=== PATIENT | male | born 1960 | race African-American/Black ===

== ENCOUNTER → 2016-06-14 | Outpatient (CLI) | payer BC ==
[~2016-06-14] MED LIST: AMPI500C9 PO; ANDG TOP; ASPCH81X PO; ATOR-24 PO; B-COTAB18 PO; CALC600T37 PO; CHOL1TAB42 PO; CYAN1TAB18 PO; DYZ PO; HYDR-5688 PO; MELOXICAM PO; METF500T5 PO; MULT-221 PO; NIAC500T11 PO; OXYC1TAB3 PO; PROB1TAB16 PO; TRIA37.5 PO; VLT/75 PO
[2016-06-14 11:05] LABS: HEMATOCRIT 40.1 % (42-52); MEAN CELL VOLUME 64.5 fL (80-100); MEAN CORPUSCULAR HEMOGLOBIN 21.5 pg (25-34); MEAN CORPUSCULAR HGB CONC 33.4 g/dl (32-36); MEAN PLATELET VOLUME 10.2 fL (7.4-10.4); PLATELET COUNT 258 K/uL (130-400); RED BLOOD COUNT 6.22 M/uL (4.7-6.1); WHITE BLOOD COUNT 5.63 K/uL (4.8-10.8)
--- NOTE | 2016-06-14 12:25 | DIAGNOSTIC IMAGING REPORT ---
MRI right knee RIGHT LOWER EXT JOINT WITHOUT CLINICAL HISTORY: RIGHT KNEE PAIN M25.561 Right pain TECHNIQUE: MRI multi axial acquisition COMPARISON STUDY: None FINDINGS: Signal characteristics the osseous structures are in general unremarkable. There is no significant bone marrow replacing process. There is a small joint effusion with a trace amount of debris within the suprapatellar bursa area. The patellar articulating surface appears to be intact. Patellar retinaculum are intact. Anterior and posterior cruciate ligaments are unremarkable. The collateral ligaments are intact. Evaluation of menisci shows lateral meniscus to be unremarkable in overall configuration and signal character. Medial meniscus demonstrates a horizontal intrameniscal cleavage tear at its mid to posterior horn sites. Appears to be hairline extension to the apex of the mid medial meniscus. No significant loss of meniscal substance. IMPRESSION: 1. Tear posterior horn medial meniscus with hairline extension to the mid medial meniscal apex. 2. Small joint effusion with a trace amount of debris within the suprapatellar bursa. 3. Study is otherwise negative Electronically signed by: John Valdez M.D. 06/14/2016 12:23 PM
[2016-06-17 15:37] LABS: AFP TUMOR MARKER SERUM 2.6 NG/ML (<6.1)
== END | disposition home or self-care (01) ==
LOC: C.MRI 10:19
PROVIDERS: ATTEND Orthopaedic Surgery
DX: M25.561 Pain in right knee (principal); C62.90 Malignant neoplasm of unspecified testis, unspecified whether descended or undescended

== ENCOUNTER → 2016-06-20 | Outpatient (CLI) | payer BC ==
[2016-06-20 09:29] LABS: BASO % 0.2 %; BASO ABS # 0.01 K/uL (0-0.2); EOS % 2.4 %; HEMATOCRIT 39.9 % (42-52); IG% 0.2 %; LYMPH % 40.7 %; LYMPH ABS # 1.86 K/uL (1.2-3.4); MEAN CELL VOLUME 64.5 fL (80-100); MEAN CORPUSCULAR HGB CONC 32.6 g/dl (32-36); MONO % 14.7 %; NEUT % 41.8 %; PLATELET COUNT 274 K/uL (130-400); RED BLOOD COUNT 6.19 M/uL (4.7-6.1); WHITE BLOOD COUNT 4.57 K/uL (4.8-10.8)
[2016-06-20 09:52] LABS: COMPLETE YES; MICROCYTOSIS PRESENT
[2016-06-20 10:01] LABS: POTASSIUM 3.7 mmol/L (3.5-5.1)
== END | disposition home or self-care (01) ==
LOC: C.LAB 08:19
PROVIDERS: ATTEND Orthopaedic Surgery
DX: Z01.812 Encounter for preprocedural laboratory examination (principal); S83.241A Other tear of medial meniscus, current injury, right knee, initial encounter; X58.XXXA Exposure to other specified factors, initial encounter

== ENCOUNTER → 2016-06-28 | Day surgery (SDC) | payer BC ==
[2016-06-22 10:55] VITALS: Ht 175.3 cm; Wt 125.0 kg
[~2016-06-28] VITALS: Ht 175.3 cm; Wt 125.0 kg
[~2016-06-28] MED LIST changes: -AMPI500C9 PO; +BUPIVACAINE 0.5 % 5 MG/1 ML PF 10ML VIAL ONE; +CEFAZOLIN 3000 MG/65 ML D5W IV SCH; -CYAN1TAB18 PO; +DEXAMETHASONE SOD INJ 4 MG/ML VIAL ONE; +EpINEphrine INJ 1MG/ML AMP 1 MG/ML AMP ONE; +FENTANYL CITRATE INJ 50 MCG/1 ML 2 ML VIAL IV PRN; +FENTANYL CITRATE INJ 50 MCG/1 ML 2 ML VIAL ONE; +KETOROLAC TROMETHAMINE 30 MG/ML VIAL ONE; +LACTATED RINGER'S 1000ML 1,000 ML IV PRN; +LACTATED RINGER'S 1000ML 1,000 ML IV SCH; +LIDOCAINE HCL 2% 2 ML VIAL (20MG/ML) ONE; +MIDAZOLAM HCL 1 MG/ML 2ML VIAL ONE; +ONDANSETRON INJ 2 MG/ML 2 ML VIAL IV PRN; +ONDANSETRON INJ 2 MG/ML 2 ML VIAL ONE; +OXYCODONE/ACETAMINOPHEN 5-325 TAB PO PRN; +PROPOFOL IV EMULSION 10 MG/ML 20 ML VIAL IV ONE; +ROPIVACAINE 0.5% 5 MG/ML 30 ML VIAL ONE; +SODIUM CHLORIDE 0.9% 1000ML 1,000 ML IV SCH
--- NOTE | 2016-06-28 06:44 | History & Physical Bridge - SC ---
H&P Re-Evaluation Bridge Note: I have examined the patient, reviewed the History & Physical and in the interval since the performance of the History & Physical I have noted the following changes of clinical significance: No changes noted
--- NOTE | 2016-06-28 07:54 | [facility] Post Operative Brief Note ---
Immediate Operative Summary Operative Date Jun 28, 2016. Pre-Operative Diagnosis Right knee medial meniscus tear Post-Operative Diagnosis same Procedure(s) Performed Right Knee Arthroscopy, Partial Medial Meniscectomy Surgeon Dr Harris Image Processing Engineer Surgeon(s) Martin Joseph PA-C Estimated Blood Loss 0 Findings ABOVE Specimens 0 Anesthesia LMA Complication(s) None Disposition Recovery Room / PACU
--- NOTE | 2016-06-28 08:07 | Discharge Instructions-SurgCtr ---
Discharge Instructions Visit Reason for Visit: Right Knee Medial Meniscus Tear Discharge Discharge Diagnosis / Problem: SAME ABOVE Discharge Goals Goal(s): Decrease discomfort Activity Recommendations Activity Limitations: as noted below Lifting Limitations: gradually increase as tolerated Exercise/Sports Limitations: until after follow-up appointment Weightbearing Status: Right weightbearing (as tolerated) Anesthesia . Post Anesthesia Instructions: If you have had General Anesthesia or IV Sedation: * Do not drive today. * Resume driving when surgeon permits. * Do not make important decisions or sign legal documents today. * Call surgeon for: 1. Temperature elevations greater than 101 degrees F. 2. Uncontrollable pain. 3. Excessive bleeding. 4. Persistent nausea and vomiting. 5. Medication intolerance (nausea, vomiting or rash). * For nausea and vomiting use only clear liquids such as: tea, soda, bouillon until nausea subsides, then gradually increase diet as tolerated. * If you have any concerns or questions, call your surgeon's office. If physician is unavailable and it is an emergency, call 911 or go to the nearest emergency room. . Instructions / Follow-Up Instructions / Follow-Up MEDICATIONS: * Resume previous medications unless instructed otherwise by your surgeon. * Always take pain medication on a full stomach or with food to avoid upset stomach. * Do not drink alcohol or drive while taking narcotics. * Ibuprofen or Tylenol may be taken if narcotic not needed. SPECIAL CARE INSTRUCTIONS: __ None _X_ Keep extremity elevated and iced x 48 hours; apply ice 20-30 minutes 8-10 times/day. May remove at night. __ Crutches __ May discard when able __ Brace/Post-op shoe __ 24 hrs/day __ Remove at night _X_ Dressing __ Maintain until seen in office, may shower with plastic over site _X_ Remove dressings in 24-48 hours and then may shower _X_ Cover incisions with band-aids after showering __ Do not remove steri-strips Call physician if chills or temperature rises above 102 degrees or pain unrelieved by prescribed pain medications. Office [phone] Diet Recommendations Home Diet: resume previous diet Procedures Procedures Performed: Right Knee Arthroscopy, Partial Medial Meniscectomy Pending Studies Studies pending at discharge: no Medical Emergencies . Who to Call and When: Medical Emergencies: If at any time you feel your situation is an emergency, please call 911 immediately. . Non-Emergent Contact Non-Emergency issues call your: Primary Care Provider . . "Provider Documentation" section prepared by Gerry Joseph.
--- NOTE | 2016-06-28 08:44 | Anesthesia Progress Nt - [facility] ---
Anesthesia Post Op Note Date & Time Jun 28, 2016 at 08:43 Vital Signs Pain Intensity: 4 Vital Signs Past 12 Hours Date Time Temp Pulse Resp B/P Pulse Ox O2 Delivery O2 Flow Rate FiO2 06/28/16 08:06 36.7 104 16 159/104 96 Mask 6 06/28/16 06:45 37.0 89 20 125/89 96 Room Air Notes Mental Status: alert / awake / arousable, participated in evaluation Pt Amnestic to Procedure: Yes Nausea / Vomiting: adequately controlled Pain: adequately controlled Airway Patency, RR, SpO2: stable & adequate BP & HR: stable & adequate Hydration State: stable & adequate Anesthetic Complications: no major complications apparent Pt doing well. BP 125/66.
[2016-06-28 08:45] VITALS: TEMP 36.4
--- NOTE | 2016-06-28 09:08 | OPERATIVE REPORT ---
DATE OF OPERATION: 06/28/2016 PREOPERATIVE DIAGNOSIS: Displaced posterior horn medial meniscus tear, right knee. POSTOPERATIVE DIAGNOSIS: Large displaced flap tear of the posterior horn of the medial meniscus. PROCEDURE: Right knee arthroscopy, partial medial meniscectomy. SURGEON: Dr. Harris. MACHINE STUFFER AUTOMATIC: Gerry Joseph PA-C. ANESTHESIOLOGIST: Dr. Mckeon. ANESTHESIA: LMA. DRAINS: None. COMPLICATIONS: None. CONDITION: The patient tolerated the procedure well and returned to the recovery room in apparent satisfactory condition. INDICATIONS FOR SURGERY: Eugenio is a 56-year-old male who has had increasing pain and discomfort after tripping over a manhole cover and injured his knee. He has gotten progressively worse. MRI, physical exam and history are consistent with a medial meniscus tear and elected to go ahead and proceed with surgery. Procedure, expected outcomes and side effects were all explained in detail. DESCRIPTION OF PROCEDURE: The patient was taken to the OR at which time he was placed supine on the operating table and put to sleep by anesthesia department. Examination of the knee was performed. Ligamentous still it was stable. Went ahead and prepped and draped in the usual sterile fashion. Began arthroscopic examination in the anteromedial and anterolateral portals. In the medial compartment, we found a large flap tear of the posterior horn of the meniscus. It was flipped up in the intercondylar notch, it was reduced back and trimmed out without incident. It was trimmed back to a stable rim with upbiting scissors and a full radius resector. Articular surface was in good shape. ACL, lateral compartment good shape. He had some synovitis in the patellofemoral joint which was shaved out. The articular surfaces also. The knee then was copiously irrigated. We removed all cannulas, closed the portals with 4-0 nylon sutures. 30 mL of ropivacaine, 10 mg of Toradol, 1 mL epinephrine was placed in the knee joint. Placed a sterile dressing of Xeroform, 4 x 4, ABD, Sof-Rol, and Edward bandage and returned to the recovery room in apparent satisfactory condition. SURGICAL FINDINGS: Posterior horn large flap tear displaced to the medial meniscus. I attest to the content of the Intraoperative Record and any orders documented therein. Any exceptio ns are noted below.
[2016-06-28 09:29] VITALS: BP 118/78; PULSE 61; O2SAT 98
== END | disposition home or self-care (01) ==
LOC: X.SURG 06:34
PROVIDERS: ATTEND Orthopaedic Surgery
DX: S83.241A Other tear of medial meniscus, current injury, right knee, initial encounter (principal); W18.41XA Slipping, tripping and stumbling without falling due to stepping on object, initial encounter; Y93.01 Activity, walking, marching and hiking; Y92.89 Other specified places as the place of occurrence of the external cause; I10 Essential (primary) hypertension; Z85.47 Personal history of malignant neoplasm of testis; E11.9 Type 2 diabetes mellitus without complications; G47.33 Obstructive sleep apnea (adult) (pediatric)

== ENCOUNTER 2016-12-05 06:11 | Emergency (ER) | payer BC ==
[~2016-12-05] VITALS: Ht 175.3 cm; Wt 125.2 kg
[~2016-12-05 06:11] MED LIST changes: -ATOR-24 PO; -BUPIVACAINE 0.5 % 5 MG/1 ML PF 10ML VIAL ONE; -CEFAZOLIN 3000 MG/65 ML D5W IV SCH; -DEXAMETHASONE SOD INJ 4 MG/ML VIAL ONE; -EpINEphrine INJ 1MG/ML AMP 1 MG/ML AMP ONE; -FENTANYL CITRATE INJ 50 MCG/1 ML 2 ML VIAL IV PRN; -FENTANYL CITRATE INJ 50 MCG/1 ML 2 ML VIAL ONE; -KETOROLAC TROMETHAMINE 30 MG/ML VIAL ONE; -LACTATED RINGER'S 1000ML 1,000 ML IV PRN; -LACTATED RINGER'S 1000ML 1,000 ML IV SCH; -LIDOCAINE HCL 2% 2 ML VIAL (20MG/ML) ONE; -MIDAZOLAM HCL 1 MG/ML 2ML VIAL ONE; -NIAC500T11 PO; -ONDANSETRON INJ 2 MG/ML 2 ML VIAL IV PRN; -ONDANSETRON INJ 2 MG/ML 2 ML VIAL ONE; -OXYC1TAB3 PO; -OXYCODONE/ACETAMINOPHEN 5-325 TAB PO PRN; -PROPOFOL IV EMULSION 10 MG/ML 20 ML VIAL IV ONE; -ROPIVACAINE 0.5% 5 MG/ML 30 ML VIAL ONE; -SODIUM CHLORIDE 0.9% 1000ML 1,000 ML IV SCH; -TRIA37.5 PO; -VLT/75 PO
[2016-12-05 06:16] VITALS: TEMP 36.7; Ht 175.3 cm; Wt 125.2 kg
[2016-12-05] MEDS ORDERED: SODIUM CHLORIDE 0.9% 1000ML 1,000 ML IV STA (06:31)
[2016-12-05] MEDS ORDERED: ONDANSETRON INJ 2 MG/ML 2 ML VIAL IV STA (06:31)
[2016-12-05] MEDS ORDERED: MoRPHine SULFATE 4 MG/ML 1 ML CARP\\VIAL IV PRN (06:45)
[2016-12-05] MEDS ORDERED: ATOR-24 PO (06:47)
[2016-12-05] MEDS ORDERED: VLT/75 PO (06:47)
[2016-12-05] MEDS ORDERED: TRIA37.5 PO (06:48)
[2016-12-05] MEDS ORDERED: NIAC500T11 PO (06:48)
--- NOTE | 2016-12-05 06:58 | EMERGENCY ROOM VISIT NOTE ---
History Report prepared by Sharif: Belinda Aggarwal Under the Supervision of: Dr. Sherwin Moses D.O. First contact with patient: 06:23 Chief Complaint: BACK PAIN Stated Complaint: LWR BACK PAIN,PAIN MOVING STARTED IN CENTER History of Present Illness The patient is a 56 year old male who presents to the Emergency Room with complaints of worsening constant lower back pain beginning 17 days prior to arrival. The patient states that the pain began in the center and moves location laterally. He states the pain radiates into his groin. He also notes difficulty moving this morning and used a heating pad which helped to alleviate his pain. The patient saw his PCP when the pain first began and he is scheduled for a CT scan today. He states that his PCP wanted to look at his organs and then would treat the back pain. The patient states that he has had similar pain to this before and was evaluated for a kidney stone but no stone was found. The patient has a history of testicular cancer and did have his right testicle removed. The patient is also a diabetic. He notes a recent colonoscopy showed polyps. He denies nausea, vomiting, fever, chills, urinary symptoms, dark urine or blood in urine, abdominal pain, testicular pain, or a rash. 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 A total of 10 systems reviewed and were otherwise negative. Past Medical & Surgical Medical Problems: (1) Diabetes (2) Testicular cancer Surgical Problems: (1) H/O vasectomy Family History Cancer Diabetes mellitus Heart disease Social History Smoking Status: Never Smoker Alcohol Use: none Marital Status: Housing Status: lives with family Occupation Status: employed Current/Historical Medications Scheduled Aspirin (Aspirin Chewable), 81 MG PO QAM Atorvastatin (Lipitor), 40 MG PO DAILY B-Complex Vitamins (Vitamin B Complex), 1 TAB PO QAM Calcium (Calcium), 600 MG PO QAM Cholecalciferol (Vitamin D), 5,000 INTER.UNIT PO QAM Diclofenac Sod (Diclofenac Sodium Dr), 75 MG PO BID Metformin Hcl Er (Glucophage Er), 500 MG PO QAM Multiple Vitamins W/ Minerals (Multi For Him 50+), 1 TAB PO QAM Niacin (Niacin), 500 MG PO DAILY Testosterone (Androgel), 1 APPLN TOP QAM Triamterene/Hctz (Dyazide 37.5MG/25MG), 1 TAB PO DAILY Scheduled PRN Oxycodone Immediate Rel Tab (Roxicodone Ir), 1-2 TAB PO Q4H PRN for Severe Pain Allergies Coded Allergies: No Known Allergies (Verified , 12/05/16) Physical Exam Vital Signs Date Time Temp Pulse Resp B/P (MAP) Pulse Ox O2 Delivery O2 Flow Rate FiO2 12/05/16 11:01 68 18 171/87 98 12/05/16 10:39 56 12/05/16 10:17 54 14 161/88 97 Room Air 12/05/16 09:16 54 14 150/90 98 Room Air 12/05/16 08:00 55 15 158/95 96 Room Air 12/05/16 07:07 65 12/05/16 07:06 65 14 146/81 94 Room Air 12/05/16 06:16 36.7 78 20 145/93 97 Room Air Physical Exam GENERAL: Patient is awake, alert, and in no acute distress. Patient is resting comfortably and showing no signs of anxiety EYES: The conjunctivae are clear. The pupils are round and reactive. EARS, NOSE, MOUTH AND THROAT: The nose is without any evidence of any deformity. Mucous membranes are moist tongue is midline NECK: The neck is nontender and supple. RESPIRATORY: Normal respiratory effort is noted there is no evidence of wheezing rhonchi or rales CARDIOVASCULAR: Regular rate and rhythm noted there no murmurs rubs or gallops normal S1 normal S2 GASTROINTESTINAL: Mildly distended but soft. Left lower quadrant pain to palpation. No guarding or rigidity. No inguinal masses. PELVIS: The Pelvis is stable. No tenderness to palpation is noted. BACK: No midline pain appreciated. Range of motion limited secondary to pain. No CVA tenderness to percussion. : Circumcised male genitalia, previous orchiectomy noted. No tenderness or swelling appreciated in scrotum. MUSCULOSKELETAL/EXTREMITIES: There is no evidence of gross deformity full range of motion is noted in the hips and shoulders SKIN: There is no obvious evidence of any rash. There are no petechiae, pallor or cyanosis noted. NEUROLOGIC: Patient is awake alert and oriented x3, patellar reflex +1 bilaterally, Achilles reflex +1 bilaterally, great toe raise symmetrical. Medical Decision & Procedures ER Provider Diagnostic Interpretation: Radiology results as stated below per my review and radiologist interpretation: CHEST ONE VIEW PORTABLE CLINICAL HISTORY: Abdominal pain. COMPARISON STUDY: Chest radiograph June 10, 2014. FINDINGS: Lung volumes are normal. Lungs are clear. There is no evidence of pulmonary edema. Cardiomediastinal silhouette is normal. There is no pneumothorax or pleural effusion. IMPRESSION: No acute cardiopulmonary findings. Electronically signed by: Jignesh Gomez M.D. 12/05/2016 6:58 AM Dictated Date/Time: 12/05/2016 6:[address] SCAN OF THE ABDOMEN AND PELVIS WITH IV CONTRAST CLINICAL HISTORY: Left lower quadrant abdominal pain. COMPARISON STUDY: Abdominal CT dated 02/20/2015. TECHNIQUE: Following the IV administration of 92 cc of Optiray 320, CT scan of the abdomen and pelvis is performed from the lung bases to the proximal femora. Images are reviewed in the axial, sagittal, and coronal planes. IV contrast was administered without complication. Automated dose control exposure was utilized. CT DOSE: 1188.78 mGy.cm FINDINGS: Lung bases: The heart is mildly enlarged and there is a small pericardial effusion. The lung bases are clear. Liver: The contrast-enhanced liver is normal in size, contour, and attenuation. There is no intrahepatic biliary ductal dilatation. The hepatic veins and portal veins are patent. Gallbladder: Unremarkable. Spleen: Normal in size and attenuation. Pancreas: Unremarkable. Adrenal glands: Unremarkable. Kidneys: The contrast enhanced kidneys are normal in size and without hydronephrosis. The kidneys enhance symmetrically. Abdominal vasculature: The abdominal aorta is normal in course and caliber noting mild atherosclerotic calcification. Bowel: The small bowel and colon are normal in course and caliber. There are scattered colonic diverticula without CT evidence of acute diverticulitis. Colonic fecal retention is observed. The appendix is well-visualized and normal. Peritoneum: There is no intraperitoneal free air or abdominal ascites. There is a small fat-containing umbilical hernia. Lymphadenopathy: None. Pelvic viscera: The bladder, prostate, and seminal vesicles are grossly normal as imaged. Postoperative change is noted in the right groin. Surgical clips are noted along the spermatic cord. Skeletal structures: No lytic or blastic lesions are seen. IMPRESSION: There are no acute infectious or inflammatory findings in the abdomen or pelvis. Electronically signed by: Fernie Caballero M.D. 12/05/2016 9:48 AM Dictated Date/Time: 12/05/2016 9:43 AM Laboratory Results 12/05/16 06:32 Red Blood Count 6.12, Mean Corpuscular Volume 64.9, Mean Corpuscular Hemoglobin 21.6, Mean Corpuscular Hemoglobin Concent 33.2, Neutrophils (%) (Auto) 47.6, Lymphocytes (%) (Auto) 43.0, Monocytes (%) (Auto) 8.1, Eosinophils (%) (Auto) 0.8, Basophils (%) (Auto) 0.3, Neutrophils # (Auto) 2.94, Lymphocytes # (Auto) 2.66, Monocytes # (Auto) 0.50, Eosinophils # (Auto) 0.05, Basophils # (Auto) 0.02 12/05/16 06:32 Test 12/05/16 06:30 12/05/16 06:32 Urine Color YELLOW Urine Appearance CLEAR (CLEAR) Urine pH 5.5 (4.5-7.5) Urine Specific [place] 1.022 (1.000-1.030) Urine Protein NEG (NEG) Urine Glucose (UA) NEG (NEG) Urine Ketones NEG (NEG) Urine Occult Blood NEG (NEG) Urine Nitrite NEG (NEG) Urine Bilirubin NEG (NEG) Urine Urobilinogen NEG (NEG) Urine Leukocyte Esterase NEG (NEG) White Blood Count 6.18 K/uL (4.8-10.8) Red Blood Count 6.12 M/uL (4.7-6.1) Hemoglobin 13.2 g/dL (14.0-18.0) Hematocrit 39.7 % (42-52) Mean Corpuscular Volume 64.9 fL (80-100) Mean Corpuscular Hemoglobin 21.6 pg (25-34) Mean Corpuscular Hemoglobin Concent 33.2 g/dl (32-36) Platelet Count 280 K/uL (130-400) Neutrophils (%) (Auto) 47.6 % Lymphocytes (%) (Auto) 43.0 % Monocytes (%) (Auto) 8.1 % Eosinophils (%) (Auto) 0.8 % Basophils (%) (Auto) 0.3 % Neutrophils # (Auto) 2.94 K/uL (1.4-6.5) Lymphocytes # (Auto) 2.66 K/uL (1.2-3.4) Monocytes # (Auto) 0.50 K/uL (0.11-0.59) Eosinophils # (Auto) 0.05 K/uL (0-0.5) Basophils # (Auto) 0.02 K/uL (0-0.2) RDW Standard Deviation 41.1 fL (36.4-46.3) RDW Coefficient of Variation 17.6 % (11.5-14.5) Immature Granulocyte % (Auto) 0.2 % Immature Granulocyte # (Auto) 0.01 K/uL (0.00-0.02) Anisocytosis PRESENT Microcytosis PRESENT Ovalocytes 1+ Anion Gap 10.0 mmol/L (3-11) Est Creatinine Clear Calc Drug Dose 110.5 ml/min Estimated GFR () 98.5 Estimated GFR (Non- 84.9 BUN/Creatinine Ratio 20.0 (10-20) Calcium Level 9.0 mg/dl (8.5-10.1) Total Bilirubin 0.5 mg/dl (0.2-1) Direct Bilirubin < 0.1 mg/dl (0-0.2) Aspartate Amino Transf (AST/SGOT) 20 U/L (15-37) Alanine Aminotransferase (ALT/SGPT) 52 U/L (12-78) Alkaline Phosphatase 71 U/L (45-117) Total Protein 7.3 gm/dl (6.4-8.2) Albumin 3.7 gm/dl (3.4-5.0) Lipase 152 U/L (73-393) Laboratory results per my review. Medications Administered Medications (Trade) Dose Ordered Sig/Mojgan Route Start Time Stop Time Status Last Admin Dose Admin Sodium Chloride 1,000 ml @ 200 mls/hr Q5H STAT IV 12/05/16 06:31 12/05/16 11:30 DC 12/05/16 06:59 200 MLS/HR Morphine Sulfate (MoRPHine SULFATE INJ) 4 mg Q15M PRN IV 12/05/16 06:45 12/05/16 12:00 DC 12/05/16 06:59 4 MG Ondansetron HCl (Zofran Inj) 4 mg NOW STAT IV 12/05/16 06:31 12/05/16 06:33 DC 12/05/16 06:59 4 MG ED Course 0625: The patient was evaluated in room A3. A complete history and physical examination were performed. 0631: Zofran Inj 4 mg IV, Sodium Chloride 1,000 ml @ 200 mls/hr IV. 0645: Morphine Sulfate Inj 4 mg IV. 0724: I reevaluated the patient. 1033: Upon reevaluation, the patient is hemodynamically stable. I discussed the results and treatment plan with him. He verbalized agreement of the treatment plan. He was discharged home. Medical Decision Differential diagnosis: Etiologies such as appendicitis, diverticulitis, PUD, biliary pathology, UTI, pancreatitis, obstruction, mesenteric ischemia, aortic pathology, infections, inflammatory bowel disease, renal colic, as well as others were entertained. Medication Reconciliation: I attest that I have personally reviewed the patient' s current medications list. Patient was found to have a slightly elevated blood pressure due to circumstances. I do not believe that the patient requires hypertension monitoring. The patient is a 56-year-old male who presented to the emergency department for an evaluation of left back pain and left lower quadrant abdominal pain. The patient is ongoing symptoms for a few weeks. He was seen by his primary care physician and was felt to have an intra-abdominal cause for his pain. There was also concerned because the patient has a history of testicular cancer in the past. He has no scrotal tenderness at this time. I discussed the patient's laboratory and radiographic studies with him. He was scheduled for a CT as an outpatient and I do feel this would be the more important test to do at this time given the patient's history. For this reason a CT was obtained in the emergency department. The patient was treated with IV fluids IV pain medicine and IV antiemetics. On subsequent reevaluation he was feeling much better. At this time I feel his pain is most likely due to musculoskeletal cause. He was encouraged to rest and avoid any strenuous activity. He was encouraged to continue all medications as prescribed. He is also encouraged to discuss possibility he may require further workup for his back pain or possibly an MRI the back. He was also encouraged to return to the emergency apartment immediately if symptoms change worsen or the need arises. Impression Primary Impression: LLQ abdominal pain Additional Impression: Left low back pain Scribe Attestation The scribe's documentation has been prepared under my direction and personally reviewed by me in its entirety. I confirm that the note above accurately reflects all work, treatment, procedures, and medical decision making performed by me. Departure Information Dispostion Home / Self-Care Prescriptions Oxycodone Immediate Rel Tab (ROXICODONE IR) 5 Mg Tab 1-2 TAB PO Q4H Y for Severe Pain, #24 TAB Prov: Sherwin Moses, DO 12/05/16 Referrals Miguelito Norman M.D. (PCP) Forms HOME CARE DOCUMENTATION FORM, IMPORTANT VISIT INFORMATION, Work Instructions Patient Instructions ED Low Back Pain Injury, My [facility] Additional Instructions Call your family to schedule follow-up appointment. Rest and avoid any strenuous activity. Continue all medications as prescribed. Discuss the possibility with your family the may require further workup for this back pain which may include a referral to a specialist or possibly an MRI. Problem Qualifiers Additional Impression: Left low back pain Chronicity: acute Sciatica presence: without sciatica Qualified Codes: M54.5 - Low back pain
[2016-12-05 07:09] LABS: BASO % 0.3 %; BASO ABS # 0.02 K/uL (0-0.2); EOS % 0.8 %; HEMATOCRIT 39.7 % (42-52); IG% 0.2 %; LYMPH ABS # 2.66 K/uL (1.2-3.4); MEAN CELL VOLUME 64.9 fL (80-100); MEAN CORPUSCULAR HEMOGLOBIN 21.6 pg (25-34); MEAN CORPUSCULAR HGB CONC 33.2 g/dl (32-36); MONO % 8.1 %; NEUT % 47.6 %; PLATELET COUNT 280 K/uL (130-400); RED BLOOD COUNT 6.12 M/uL (4.7-6.1); WHITE BLOOD COUNT 6.18 K/uL (4.8-10.8)
[2016-12-05 07:28] LABS: ALT/SGPT 52 U/L (12-78); BLOOD UREA NITROGEN 20 mg/dl (7-18); CARBON DIOXIDE 26 mmol/L (21-32); CHLORIDE 106 mmol/L (98-107); GLUCOSE 101 mg/dl (70-99); POTASSIUM 3.7 mmol/L (3.5-5.1); SODIUM 142 mmol/L (136-145)
[2016-12-05 07:30] LABS: ALKALINE PHOSPHATASE 71 U/L (45-117); AST/SGOT 20 U/L (15-37)
[2016-12-05 07:33] LABS: URINE APPEARANCE CLEAR (CLEAR); URINE BILIRUBIN NEG (NEG); URINE COLOR YELLOW; URINE NITRITE NEG (NEG); URINE PH 5.5 (4.5-7.5); URINE SPECIFIC GRAVITY 1.022 (1.000-1.030); UROBILINOGEN NEG (NEG)
[2016-12-05 07:34] LABS: ANISOCYTOSIS PRESENT; COMPLETE YES; MICROCYTOSIS PRESENT; OVALOCYTES 1+
[2016-12-05 07:41] LABS: MANUAL MICROSCOPIC REQUIRED? NO
[2016-12-05 07:42] LABS: REVIEW REQ? NO
--- NOTE | 2016-12-05 09:49 | DIAGNOSTIC IMAGING REPORT ---
CT SCAN OF THE ABDOMEN AND PELVIS WITH IV CONTRAST CLINICAL HISTORY: Left lower quadrant abdominal pain. COMPARISON STUDY: Abdominal CT dated 02/20/2015. TECHNIQUE: Following the IV administration of 92 cc of Optiray 320, CT scan of the abdomen and pelvis is performed from the lung bases to the proximal femora. Images are reviewed in the axial, sagittal, and coronal planes. IV contrast was administered without complication. Automated dose control exposure was utilized. CT DOSE: 1188.78 mGy.cm FINDINGS: Lung bases: The heart is mildly enlarged and there is a small pericardial effusion. The lung bases are clear. Liver: The contrast-enhanced liver is normal in size, contour, and attenuation. There is no intrahepatic biliary ductal dilatation. The hepatic veins and portal veins are patent. Gallbladder: Unremarkable. Spleen: Normal in size and attenuation. Pancreas: Unremarkable. Adrenal glands: Unremarkable. Kidneys: The contrast enhanced kidneys are normal in size and without hydronephrosis. The kidneys enhance symmetrically. Abdominal vasculature: The abdominal aorta is normal in course and caliber noting mild atherosclerotic calcification. Bowel: The small bowel and colon are normal in course and caliber. There are scattered colonic diverticula without CT evidence of acute diverticulitis. Colonic fecal retention is observed. The appendix is well-visualized and normal. Peritoneum: There is no intraperitoneal free air or abdominal ascites. There is a small fat-containing umbilical hernia. Lymphadenopathy: None. Pelvic viscera: The bladder, prostate, and seminal vesicles are grossly normal as imaged. Postoperative change is noted in the right groin. Surgical clips are noted along the spermatic cord. Skeletal structures: No lytic or blastic lesions are seen. IMPRESSION: There are no acute infectious or inflammatory findings in the abdomen or pelvis. Electronically signed by: Fernie Caballero M.D. 12/05/2016 9:48 AM Dictated Date/Time: 12/05/2016 9:43 AM
[2016-12-05] MEDS ORDERED: OXYC1TAB3 PO (10:33)
[2016-12-05 11:01] VITALS: BP 171/87; PULSE 68; O2SAT 98
== END 2016-12-05 11:09 | disposition home or self-care (01) ==
LOC: C.EDB 06:13 → C.EDA 11:09
DX: R10.32 Left lower quadrant pain (principal); M54.5 Low back pain; E11.9 Type 2 diabetes mellitus without complications; Z85.47 Personal history of malignant neoplasm of testis; Z90.79 Acquired absence of other genital organ(s); Z83.3 Family history of diabetes mellitus; Z79.82 Long term (current) use of aspirin; Z79.84 Long term (current) use of oral hypoglycemic drugs

== ENCOUNTER → 2016-12-14 | Outpatient (CLI) | payer BC ==
[~2016-12-14] MED LIST changes: +ATOR-24 PO; -DYZ PO; -HYDR-5688 PO; -MELOXICAM PO; +NIAC500T11 PO; +OXYC1TAB3 PO; -PROB1TAB16 PO; +TRIA37.5 PO; +VLT/75 PO
--- NOTE | 2016-12-14 11:08 | DIAGNOSTIC IMAGING REPORT ---
LUMBAR SPINE MRI HISTORY: Pain. Neuropathy. PAIN TECHNIQUE: Multiplanar multisequence MRI of the lumbar spine was performed without the use of contrast. COMPARISON: None. FINDINGS: For the purpose of the report the L5-S1 disc space will be located on axial image 23 of 25. Mild degenerative disc change primarily from L4 through S1. Soft tissue density posterior to the L3 vertebral body having a maximum cephalocaudal dimension of 7 mm. L1-L2: No significant central canal or neural foraminal narrowing. L2-L3: No significant central canal or neural foraminal narrowing. L3-L4: Left lateral bulging disc with a probable extruded disc fragment extending superiorly posterior to the left posterior margin of the L3 vertebral body. This is a maximum cross-sectional dimension of 6 x 9 mm. Narrowing of the left neuroforamina. Impact upon the thecal thecal sac is relatively mild L4-L5: Mild broad-based disc bulge. L5-S1: No significant central canal or neural foraminal narrowing. IMPRESSION: 1. Left lateral bulging disc L3-L4 with an extruded disc fragment extending in a superior fashion posterior to the L3 vertebral body. 2. This occupies components of the left lateral recess as well as left neural foramina at L3-L4. 3. Minimal disc bulge L4-L5 Electronically signed by: John Valdez M.D. 12/14/2016 11:07 AM Dictated Date/Time: 12/14/2016 11:00 AM
== END | disposition home or self-care (01) ==
LOC: C.MRI 09:41
PROVIDERS: ATTEND Family Medicine
DX: M54.16 Radiculopathy, lumbar region (principal); M51.17 Intervertebral disc disorders with radiculopathy, lumbosacral region; M51.26 Other intervertebral disc displacement, lumbar region

== ENCOUNTER → 2017-06-21 | Outpatient (CLI) | payer OTHER ==
[~2017-06-21] MED LIST changes: -OXYC1TAB3 PO
[2017-06-21 09:28] LABS: HEMATOCRIT 40.1 % (42-52); HEMOGLOBIN 13.1 g/dL (14.0-18.0); MEAN CELL VOLUME 65.5 fL (80-100); MEAN CORPUSCULAR HEMOGLOBIN 21.4 pg (25-34); MEAN CORPUSCULAR HGB CONC 32.7 g/dl (32-36); PLATELET COUNT 265 K/uL (130-400); RED CELL DISTRIBUTION WIDTH CV 17.3 % (11.5-14.5); RED CELL DISTRIBUTION WIDTH SD 40.2 fL (36.4-46.3); WHITE BLOOD COUNT 6.16 K/uL (4.8-10.8)
== END | disposition home or self-care (01) ==
LOC: C.LAB 07:47
PROVIDERS: ATTEND Urology
DX: E29.1 Testicular hypofunction (principal)